=== PATIENT | female | born 1955 | race Caucasian/White ===

== ENCOUNTER → 2016-10-24 | Outpatient (CLI) | payer OTHER ==
[~2016-10-24] MED LIST: ALPR.25 PO; AMLO5 PO; APREPITANT 40 MG CAP ONE; EFFE150C PO; ESTR1TAB PO; LORA-373 PO; LORA1TAB12 PO; MEDR2.5T2 PO; MELA5TAB15 PO; METO25TA3 PO; NORV2.5T PO
[2016-10-24 12:20] LABS: AUTOMATED NEUTROPHIL # 4.4 TH/MM3 (1.8-7.7); BASOPHIL # 0.1 TH/MM3 (0-0.2); BASOPHIL % 0.9 % (0.0-2.0); EOSINOPHIL # 0.1 TH/MM3 (0-0.4); EOSINOPHIL % 0.8 % (0.0-4.0); HEMATOCRIT 36.8 % (35.0-46.0); HEMO FLAGS DIFF FINAL; LYMPH % 19.8 % (9.0-44.0); LYMPHOCYTE # 1.2 TH/MM3 (1.0-4.8); MEAN CELL VOLUME 91.3 FL (80.0-100.0); MEAN CORPUSCULAR HEMOGLOBIN 32.1 PG (27.0-34.0); MEAN CORPUSCULAR HGB CONC 35.2 % (32.0-36.0); MONO % 8.1 % (0.0-8.0); NEUT % 70.4 % (16.0-70.0); PLATELET COUNT 282 TH/MM3 (150-450); RED BLOOD COUNT 4.04 MIL/MM3 (4.00-5.30); RED CELL DISTRIBUTION WIDTH 13.2 % (11.6-17.2); WHITE BLOOD COUNT 6.3 TH/MM3 (4.0-11.0)
[2016-10-24 12:24] LABS: BLOOD, URINE MOD (NEG); GLUCOSE,URINE NEG (NEG); KETONE, URINE NEG (NEG); MUCUS URINE FEW /lpf (OCC); NITRITE,URINE NEG (NEG); SQUAMOUS EPITHELIAL CELL URINE 1 /hpf (0-5); URINE COLOR YELLOW (YELLW/STRAW)
[2016-10-24 12:45] LABS: BICARBONATE 28.4 MEQ/L (21.0-32.0); POTASSIUM 3.8 MEQ/L (3.5-5.1)
--- NOTE | 2016-10-24 18:23 | EKG ---
Date Performed: 10/24/2016 Time Performed: 10:57:32 PTAGE: 60 years EKG: NORMAL Sinus rhythm POSSIBLE LEFT ATRIAL ABNORMALITY Compared to prior tracing no significant change PREVIOUS TRACING 05/11/1995 02.58.42 DOCTOR: Car Cristina Interpretating Date/Time 10/24/2016 18:21:56
== END ==
LOC: CPRE 10:36
PROVIDERS: ATTEND Obstetrics & Gynecology
DX: Z01.810 Encounter for preprocedural cardiovascular examination (principal); Z01.812 Encounter for preprocedural laboratory examination; N95.0 Postmenopausal bleeding
CPT/HCPCS: 80048; 81001; 85025; 86850; 86900; 86901; 93005

== ENCOUNTER 2016-10-26 05:23 | Inpatient (IN) | payer OTHER ==
--- NOTE | 2016-10-25 13:40 | MH ---
cc: MANUEL CHRISTIANSEN DATE OF ADMISSION: 10/26/2016 DATE OF : 1955 SCHEDULED PROCEDURE LAVH, BSO. ADMITTING DIAGNOSIS Postmenopausal bleeding. HISTORY OF PRESENT CONDITION The patient is a 60-year-old white female, para 2, with intact pelvis who has had intermittent bouts of heavy bleeding up to 11 days with cramps while on hormone therapy. She has not missed any of her pills. She had an episode of bleeding four months ago and had a negative endometrial biopsy. She has no hypertension or diabetes. She has been on combined hormone replacement therapy for about eight years. She has occasional heart palpitations and uses metoprolol but no other medications. She has been under very great stress test with the recent loss of her father. Pap smears have all been normal. Ultrasound has shown an absence of an enlarged uterus but the lining is 9 mm. It also has an inhomogeneity suggesting possible polyps. She preferred to avoid a hysteroscopy and go straight to laparoscopic-assisted vaginal hysterectomy. PAST MEDICAL HISTORY She is otherwise in quite good health. She takes Effexor for mild depression and metoprolol for occasional palpitations. SOCIAL HISTORY She does not smoke, drink or use illicit drugs. She exercises regularly. FAMILY HISTORY Noncontributory. REVIEW OF SYSTEMS Otherwise negative. She has no problem with her bowels or bladder or intercourse. PHYSICAL EXAMINATION VITAL SIGNS: Weight 145. Height 5 feet 9 inches. Blood pressure 140/78. NECK: She has no thyroid enlargement. LUNGS: Clear to auscultation. HEART: Rate and rhythm are regular without murmur, heave or thrills. BREASTS: Without dominant mass, nipple discharge or skin retraction. ABDOMEN: Benign. She has no hepatosplenomegaly. BACK: No CVA tenderness. PELVIC: Perineum is well-estrogenized. Vault is elevated. Cervix is multiparous. Uterus is anteverted, mobile, nontender. There is minimal descent. Ovaries are not palpable. Rectovaginal exam shows a negative guaiac, no polyps, no hemorrhoids and no significant rectocele. EXTREMITIES: Unremarkable. IMPRESSION Postmenopausal bleeding with a negative endometrial biopsy, but there is knowledge that this could be a 5% false negative. Thickened endometrium on ultrasound otherwise benign. She is on hormone replacement therapy. PLAN The plan is to proceed with LAVH and BSO. The risks, benefits, expectations and alternatives have been discussed in detail with her and her . She is scheduled for morning and has signed consents. MD AUREA Leblanc/BT /1:22 PM /1:30 PM
[~2016-10-26] VITALS: Ht 172.1 cm; Wt 70.2 kg
[2016-10-26] VITALS (8 sets, daily range): BP systolic 126–166; BP diastolic 78–100; PULSE 71–93; RESP 12–22; TEMP 97–98.3; O2SAT 94–100
[~2016-10-26 05:23] MED LIST changes: -AMLO5 PO; -APREPITANT 40 MG CAP ONE; -LORA-373 PO; -LORA1TAB12 PO; -MELA5TAB15 PO; -NORV2.5T PO
[2016-10-26] MEDS ORDERED: INSULIN HUMAN REGULAR 1,000 UNITS/10 ML VIAL SQ PRN (06:00)
[2016-10-26] MEDS: SODIUM CHLORID 0.9% 500 ML IV SCH ×2 (06:00→20:29)
[2016-10-26] MEDS: LACTATED RINGER'S 1000 ML IV SCH (06:00)
[2016-10-26] MEDS ORDERED: METOPROLOL TARTRATE 25 MG TAB PO PRN (06:00)
[2016-10-26] MEDS ORDERED: ceFAZolin 2 GM PREMIX 50 ML ONE (06:03)
[2016-10-26] MEDS ORDERED: MIDAZOLAM HCL 2 MG/2 ML VIAL ONE (07:21)
[2016-10-26] MEDS ORDERED: ACETAMINOPHEN 1000 MG/100 ML VIAL IV ONE (07:22)
[2016-10-26] MEDS ORDERED: fentaNYL CITRATE 250 MCG/5 ML AMP ONE ×2 (07:22→13:05)
[2016-10-26] MEDS ORDERED: APREPITANT 40 MG CAP ONE (07:22)
[2016-10-26] MEDS ORDERED: DEXAMETHASONE SOD PHOS 4 MG/ML VIAL ONE (07:22)
[2016-10-26] MEDS ORDERED: FAMOTIDINE 20 MG/2 ML VIAL ONE (07:23)
[2016-10-26] MEDS ORDERED: ONDANSETRON HCL 4 MG/2 ML VIAL ONE (07:41)
[2016-10-26] MEDS ORDERED: PHENYLEPH/NS 1000 MCG/10 ML SYR IV ONE (08:07)
[2016-10-26] MEDS ORDERED: NEOSTIGMINE 3 MG/3 ML SYR IV ONE (08:07)
[2016-10-26] MEDS ORDERED: ePHEDrine/NS 25 MG/5 ML SYR IV ONE (08:07)
[2016-10-26] MEDS ORDERED: PROPOFOL 200 MG/20 ML AMP IV ONE (08:07)
[2016-10-26] MEDS ORDERED: BUPIVACAINE/EPINEPHRINE 0.25% PF 30 ML VIAL INFIL ONE (08:22)
[2016-10-26] MEDS ORDERED: SODIUM CHLORIDE 0.9% FLUSH 5 ML FLUSH FLUSH PRN (10:15)
[2016-10-26] MEDS ORDERED: LORazepam 0.5 MG TAB PO PRN (10:15)
[2016-10-26] MEDS ORDERED: IBUPROFEN 600 MG TAB PO PRN (10:15)
[2016-10-26] MEDS ORDERED: HYDROmorphone HCL PF 1 MG/ML VIAL IVP PRN (10:15)
[2016-10-26] MEDS ORDERED: ONDANSETRON HCL 4 MG/2 ML VIAL IVP PRN (10:15)
[2016-10-26] MEDS ORDERED: ESTRADIOL 0.1 MG/24 HR PATCH TD ONE (10:15)
[2016-10-26] MEDS ORDERED: ZOLPIDEM TARTRATE 5 MG TAB PO PRN (10:15)
[2016-10-26] MEDS ORDERED: KETOROLAC TROMETHAMINE 30 MG/ML (IVP) VIAL IVP PRN (10:15)
[2016-10-26] MEDS ORDERED: PROMETHAZINE INJ 25 MG/ML VIAL IM PRN (10:15)
[2016-10-26] MEDS: LACTATED RINGER'S 1000 ML INJ 1,000 ML IV SCH ×2 (10:45→18:14)
[2016-10-26] MEDS ORDERED: PILL SPLITTER OTHER PRN (10:45)
[2016-10-26] MEDS ORDERED: *morphine SULFATE 8 MG/ML PERIprocedure ONLY ONE (11:03)
[2016-10-26] MEDS ORDERED: *PROMETHAZINE 25 MG/ML VIAL PERIprocedural use ONLY ONE (11:30)
[2016-10-26] MEDS ORDERED: SODIUM CHLORIDE 0.9% FLUSH 5 ML FLUSH IV FLUSH PRN (14:30)
[2016-10-26] MEDS ORDERED: CHLORHEXIDINE GLUCONATE 2 % 1 PACK (2 CLOTHS) TOP PRN (14:30)
[2016-10-26] MEDS ORDERED: MISCELLANEOUS NURSING INFORMATION XX SCH (14:30)
[2016-10-26] MEDS ORDERED: ONDANSETRON HCL 4 MG/2 ML VIAL IV PRN (14:30)
--- NOTE | 2016-10-26 14:36 | HHI.CCPN ---
Subjective Remarks/Hospital Course Patient episodically hypertensive and labile earlier. Normotensive now. Warm, well perfused. Breathing comfortably. Neurologically grossly intact, O X 3 , conversant. Only complaint is nausea. I won't complete formal consult but we will watch her closely for any hemodynamic problems. Objective Vital Signs Date Time Temp Pulse Resp B/P Pulse Ox O2 Delivery O2 Flow Rate FiO2 10/26/16 11:30 97.4 87 14 153/94 98 Nasal Cannula 3 Roger Parisi MD Oct 26, 2016 14:36
[2016-10-26] MEDS ORDERED: ALPRAZolam 0.25 MG TAB PO PRN (15:00)
[2016-10-26] MEDS: ACETAMINOPHEN 325 MG TAB PO PRN (16:26)
[2016-10-26] MEDS ORDERED: LORazepam 2 MG/ML VIAL IV PRN (19:30)
[2016-10-26] MEDS: SODIUM CHLORIDE 0.9% FLUSH 5 ML FLUSH IV FLUSH SCH (20:27)
[2016-10-26] MEDS: VENLAFAXINE HCL XR 75 MG CAP PO SCH (20:27)
[2016-10-26] MEDS: METOPROLOL TARTRATE 25 MG TAB PO SCH (20:27)
[2016-10-26] MEDS: FAMOTIDINE 20 MG TAB PO SCH (20:28)
[2016-10-26] MEDS ORDERED: LABETALOL HCL 100 MG/20 ML VIAL IV ONE (20:45)
[2016-10-26] MEDS ORDERED: SODIUM CHLORIDE 0.9% FLUSH 5 ML FLUSH FLUSH SCH (21:00)
[2016-10-27] VITALS (11 sets, daily range): BP systolic 138–164; BP diastolic 68–93; PULSE 71–93; RESP 12–20; TEMP 97.2–98.7; O2SAT 93–100
[2016-10-27] MEDS: LACTATED RINGER'S 1000 ML INJ 1,000 ML IV SCH (02:14)
[2016-10-27] MEDS ORDERED: CHLORHEXIDINE GLUCONATE 2 % 1 PACK (2 CLOTHS) TOP SCH (04:00)
[2016-10-27 04:53] LABS: AUTOMATED NEUTROPHIL # 12.5 TH/MM3 (1.8-7.7); BASOPHIL % 0.1 % (0.0-2.0); HEMO FLAGS DIFF FINAL; LYMPH % 6.9 % (9.0-44.0); MEAN CELL VOLUME 91.8 FL (80.0-100.0); MEAN CORPUSCULAR HEMOGLOBIN 31.6 PG (27.0-34.0); MEAN CORPUSCULAR HGB CONC 34.4 % (32.0-36.0); MONO % 6.6 % (0.0-8.0); NEUT % 86.4 % (16.0-70.0); PLATELET COUNT 262 TH/MM3 (150-450); RED CELL DISTRIBUTION WIDTH 12.9 % (11.6-17.2); WHITE BLOOD COUNT 14.4 TH/MM3 (4.0-11.0)
[2016-10-27 05:02] LABS: BICARBONATE 27.7 MEQ/L (21.0-32.0); POTASSIUM 3.7 MEQ/L (3.5-5.1)
[2016-10-27] MEDS: LACTATED RINGER'S 1000 ML IV SCH (05:30)
[2016-10-27] MEDS: METOPROLOL TARTRATE 25 MG TAB PO SCH ×2 (07:27→21:02)
[2016-10-27] MEDS: ACETAMINOPHEN 325 MG TAB PO PRN (07:27)
[2016-10-27] MEDS: FAMOTIDINE 20 MG TAB PO SCH ×2 (07:27→21:01)
--- NOTE | 2016-10-27 07:27 | HHI.CCPN ---
Subjective Remarks/Hospital Course Patient episodically hypertensive and labile earlier. BP 230/120s in OR. Normotensive now. Warm, well perfused. Breathing comfortably. Neurologically grossly intact, O X 3, conversant. Only complaint is nausea. I won't complete formal consult but we will watch her closely for any hemodynamic problems. 10/27: Patient with hypertensive crisis prior to surgery yesterday, associated with flushed skin. 230s/120s range. Recurred during surgery as well. Patient has not had problems with high blood pressure before. Will ask renal service to evaluate. Objective Vital Signs Date Time Temp Pulse Resp B/P Pulse Ox O2 Delivery O2 Flow Rate FiO2 10/27/16 06:00 78 10/27/16 04:00 97.7 12 164/93 97 10/26/16 19:00 Room Air 96 10/26/16 11:30 3 Intake and Output 10/26/16 10/26/16 10/27/16 08:00 16:00 00:00 Intake Total 1250 ml 1047 ml Output Total 750 ml 550 ml Balance 500 ml 497 ml Result Diagram: 10/27/16 0414 10/27/16 0414 Roger Parisi MD Oct 27, 2016 07:27
--- NOTE | 2016-10-27 08:35 | PD.OP ---
Operative Report Date of Surgery: Oct 26, 2016 Preoperative Diagnosis: PMB, cramping Postoperative Diagnosis: same, carmen operative malignant hypertension Procedure: LAVHBSO, enterocele repair cystoscopy Anesthesia: general Surgeon: Parisa Travis Scrap Iron Cutter(s): Adeline Gonzales MS3 Operation and Findings: Had episode of Nausea, vomiting, and diaphoresis then BP 240/120 anesthesia addressed intra operatively consult to SICU and maintenance assistant to help with the BP issues. These have never occurred before. Dictated note Parisa Travis MD Oct 27, 2016 08:35
--- NOTE | 2016-10-27 08:37 | HHI.PR ---
Subjective Remarks Doing well, pain is well controlled, eating well. Severe nausea yesterday and last night has resolved. anxious to understand what her BP is doing. Objective Vital Signs Vital Signs Date Time Temp Pulse Resp B/P Pulse Ox O2 Delivery O2 Flow Rate FiO2 10/27/16 06:00 78 10/27/16 04:00 79 10/27/16 04:00 97.7 77 12 164/93 97 10/27/16 02:00 79 10/27/16 00:00 71 10/27/16 00:00 97.2 71 19 141/85 98 10/26/16 22:00 73 10/26/16 21:59 15 10/26/16 20:30 94 10/26/16 20:00 97.6 85 13 166/100 94 10/26/16 20:00 71 10/26/16 19:00 Room Air 96 10/26/16 18:00 86 10/26/16 16:00 97.7 76 22 136/78 99 10/26/16 16:00 76 10/26/16 14:00 93 10/26/16 12:00 97.0 76 12 126/80 96 10/26/16 12:00 76 10/26/16 11:30 97.4 87 14 153/94 98 Nasal Cannula 3 10/26/16 11:15 81 12 129/80 98 Nasal Cannula 3 10/26/16 11:00 83 12 164/96 98 Nasal Cannula 3 10/26/16 10:45 83 12 157/86 99 Simple Mask 8 10/26/16 10:30 83 12 150/85 97 Simple Mask 8 10/26/16 10:29 96.8 71 11 154/90 97 Simple Mask 8 I/O 10/26/16 10/26/16 10/26/16 10/27/16 10/27/16 10/27/16 07:00 15:00 23:00 07:00 15:00 23:00 Intake Total 1250 ml 1047 ml 1128 ml Output Total 750 ml 550 ml 450 ml Balance 500 ml 497 ml 678 ml Intake Oral 240 ml 100 ml IV Total 807 ml 1028 ml TPN/PPN 50 ml Other 1200 ml Output Urine Total 700 ml 550 ml 450 ml Estimated Blood Loss 50 ml # Bowel Movements 0 0 Result Diagram: 10/27/16 0414 10/27/16 0414 Objective Remarks Chest is clear, regular rate and rhythm. Abdomen is soft and non-distended. Incisions are clean and dry. RLQ incision bruised no bleeding from perineum Ext no CCE. A/P Assessment and Plan Post Op Day 1 Dr. Edge to assist us in evaluating her labile hypertension and addressing before discharge will consult nephrology will transfer to med/surg as per Dr. Edge. Parisa Travis MD Oct 27, 2016 08:37
[2016-10-27] MEDS ORDERED: LISINOPRIL 5 MG TAB PO SCH (09:00)
[2016-10-27] MEDS: SODIUM CHLORIDE 0.9% FLUSH 5 ML FLUSH IV FLUSH SCH ×2 (09:00→21:04)
--- NOTE | 2016-10-27 09:49 | MP ---
cc: HOLA ALEX PAMELA HARMAN, P.KENT MD DATE OF SURGERY: 10/26/2016 PREOPERATIVE DIAGNOSIS 1. Persistent postmenopausal bleeding. 2. Anxiety disorder. 3. Occasional tachycardia controlled with metoprolol. POSTOPERATIVE DIAGNOSIS 1. Persistent postmenopausal bleeding. 2. Anxiety disorder. 3. Occasional tachycardia controlled with metoprolol. 4. Labile hypertension throughout the case to be monitored in SICU for 24 hours. PROCEDURE 1. Laparoscopically assisted vaginal hysterectomy. 2. Bilateral salpingo-oophorectomy. 3. Enterocele obliteration. 4. Lysis of adhesions. 5. Cystoscopy. ANESTHESIA General. SURGEON Angy MAIL LIST LIBRARIAN Adeline Gonzales FINDINGS The patient was counseled in holding and between holding and the OR developed significant diaphoresis, nausea, vomiting and hypertension. The procedure was postponed until she was stabilized and then she was taken to the OR to be placed under general anesthesia. During induction her blood pressures reached 240s/110s and required Anesthesia intervention. Please see their records. She was eventually normotensive and it was decided to proceed with the case. She tolerated both laparoscopic and vaginal procedures, however, with the laparoscopic portion it was hard to maintain her blood pressure. Examination under anesthesia revealed an anteverted mobile small uterus, ovaries were not palpable. She had no real cystocele or rectocele. She did have a moderate enterocele. Upon entering the peritoneal cavity the liver edge and gallbladder were normal. There were adhesions in the right lower quadrant consistent with her history of appendectomy. The uterus, tubes and ovaries were mobile and small. There was no evidence of any endometriosis, any carcinoma or other pathology. The laparoscopic portion of the case went uneventfully with no bleeding. The vaginal portion of the case was somewhat difficult due to the depth of the vagina. There was some oozing throughout the vaginal portion when the cuff was closed reevaluation laparoscopically revealed two areas of small bleeders in the cuff. These were rendered hemostatic with the Kleppinger and Valerie. They were and they will watched carefully when the pneumoperitoneum was released to make sure that they did not bleed under the release of pressure. Valerie was placed and stayed dry. A cystoscopy was performed with good flow from both ureteral orifices. No iatrogenic or intrinsic pathology noted. She tolerated the procedure well. ESTIMATED BLOOD LOSS 200 cc. COUNTS Sponge, instrument and needle counts correct. DETAILS OF PROCEDURE The patient was identified as Korina Brown. Her permit was reviewed in Holding. She had the episode of nausea, vomiting and diaphoresis that was evaluated and addressed, and then taken to the operating room, placed under general endotracheal anesthesia in the dorsal lithotomy position. Again the labile hypertension was apparent and addressed. She was prepped and draped in usual sterile fashion. A Painting catheter was placed by the thermograph operator. A timeout was performed with all in attendance. She had received Ancef one gram IV prior to the procedure. After placing the Painting catheter and a single-tooth tenaculum with acorn tenaculum in the vaginal vault, attention was directed to the abdomen. The umbilicus was infiltrated with lidocaine with epinephrine and a 5 mm trocar and sleeve placed into the peritoneal cavity. She was instilled with two liters of carbon dioxide and then checked for iatrogenic injury. Additional incisions were made in the right and left lower quadrant, both 5 mm, both instilled with lidocaine with epinephrine, and then trocars and sleeves placed. Once the trocars were placed, systematic evaluation of the abdominal and pelvic contents was performed with the findings as noted above. The Harmonic scalpel was used to transect the right round ligament the anterior leaf of the broad ligament was dissected off the lower uterine segment. The right tube and ovary were gently placed on a medial traction and the infundibulopelvic ligament was transected and successive pedicles were taken down to the level of the uterosacral. This was repeated on the left side without difficulty. Filmy adhesions in the right lower quadrant were lysed and then once we got down to the uterosacrals attention was directed toward the peritoneum. There was no bleeding from any pedicles at that time. The patient was placed in extended dorsal lithotomy position. The cervix was grasped. It was infiltrated with lidocaine with epinephrine and circumcised with the Bovie on cutting. The anterior and posterior cul-de-sacs were entered sharply and then the uterosacrals were clamped, cut and suture ligated. Successive pedicles were taken until the uterus was removed with the adnexa intact. The peritoneum was grasped and an enterocele repair was performed in the classic Moschcowitz fashion. Then the vagina was closed in a running interlocking vertical stitch. Attention was redirected to the abdomen and her pneumoperitoneum was re-instilled and the cuff was evaluated. There was a brisk bleeder on the left angle which was rendered hemostatic with a Kleppinger. There was some oozing on the right side which also was rendered hemostatic with the Kleppinger. Valerie was placed and she was carefully evaluated for any oozing. There was no bleeding, no oozing. The Valerie stayed dry. The pneumoperitoneum was released under direct visualization and there was no bleeding in the surgical site. Attention was redirected then toward the perineum where the Painting was filled with 500 cc. The catheter was removed and a laparoscope placed in the bladder to show a normal bladder with good ureteral flow from both orifices and no iatrogenic or intrinsic pathology. The instrument was removed. The Painting was replaced. The incisions were then closed with a single interrupted. She was placed in dorsal supine position. She was taken to the recovery room stable, but the decision has been made for her to have 24 hours of monitoring in the SICU to make sure that she does not have the episodes of blood pressure and increased risk for postoperative bleeding. MD AUREA Leblanc/STACY /10:26 AM /9:25 AM
--- NOTE | 2016-10-27 17:13 | PD.CONS ---
[facility] Service Nephrology Consult Requested By Dr. Travis Reason for Consult Hypertension Primary Care Physician Kaleb Lucero MD History of Present Illness The patient is a 60 yo [place] female who presented to this facility on 10/26 with postmenopausal bleeding with LAVH/BSO yesterday. During her preoperative prep, she had a spike in her BP with systolic >200. She was diaphoretic at the time. The anesthesiologist was able to get her BP down and the surgery proceeded. We have been consulted for evaluation of spike in BP specifically to determine if she may have an underlying secondary hypertension. Her PMHx is overall quite benign with PVCS/palliations managed by Metoprolol and anxiety managed by Effexor (been on same dose of medication for the past 4 years). She does use Voltaren at home, but had not used any for 7 days prior to her surgery. She does not smoke, does not drink alcohol, nor does she partake in illicit drug use. She does admit that she has had a stressful past 8 years of taking care of her ailing parents and she does have an anxious personality, but feels that she was prepared for her surgery and does not think her life stressors and anxiety had contributed to her spike in BP. Her FHx includes HTN and DM with her father who passed just 2 weeks ago at the age of 89. BP post surgery has been overall OK. Mildly elevated, but nothing close to her reported systolic of >200. She was started on Lisinopril 5mg this AM. (Lorraine Yeung) Review of Systems Constitutional: COMPLAINS OF: Diaphoretic episodes Psychiatric: COMPLAINS OF: Anxiety (Lorraine Yeung) Past Family Social History Allergies: Coded Allergies: No Known Allergies (Unverified , 10/24/16) Past Medical History Palpitations Depression/anxiety Recent post-menopausal bleeding Past Surgical History Hysterectomy/BSO 10/26 Reported Medications Reported Meds & Active Scripts Active Reported Xanax (Alprazolam) 0.25 Mg Tab 0.25 Mg PO Q4H PRN Medroxyprogesterone Acetate 2.5 Mg Tab 2.5 Mg PO HS Start day 21 Estradiol 1 Mg Tab 1 Mg PO DAILY Effexor XR 24 HR (Venlafaxine HCl) 150 Mg Cap 175 Mg PO HS Metoprolol Tartrate 25 Mg Tab 25 Mg PO BID Active Ordered Medications Current Medications Medications (Trade) Dose Ordered Sig/Darin Route Start Time Stop Time Status Last Admin Lactated Ringer's 1,000 ml @ 30 mls/hr Q24H IV 10/26/16 06:00 10/26/16 06:00 (Lr 1000 ml Inj) 1,000 ml @ 125 mls/hr Q8H IV 10/26/16 10:14 10/27/16 02:14 (Motrin) 600 mg Q6H PRN PO 10/26/16 10:15 (Toradol Inj) 30 mg Q6H PRN IVP 10/26/16 10:15 10/31/16 10:14 10/26/16 20:56 (Dilaudid Pf Inj) 1 mg Q4H PRN IVP 10/26/16 10:15 (Phenergan Inj) 25 mg Q6H PRN IM 10/26/16 10:15 10/26/16 16:43 (Ambien) 5 mg HS PRN PO 10/26/16 10:15 (Ativan) 0.25 mg Q8H PRN PO 10/26/16 10:15 (Pill Splitter) 1 ea UNSCH PRN OTHER 10/26/16 10:45 (Xanax) 0.25 mg Q4H PRN PO 10/26/16 15:00 (Lopressor) 25 mg BID PO 10/26/16 21:00 10/27/16 07:27 (Effexor Xr) 150 mg HS PO 10/26/16 21:00 (NS Flush) 2 ml UNSCH PRN IV FLUSH 10/26/16 14:30 (NS Flush) 2 ml BID IV FLUSH 10/26/16 21:00 10/27/16 09:00 (Tylenol) 650 mg Q6H PRN PO 10/26/16 15:00 10/27/16 07:27 (Pepcid) 20 mg Q12HR PO 10/26/16 21:00 10/27/16 07:27 (Zofran Inj) 4 mg Q6H PRN IV 10/26/16 14:30 10/26/16 15:00 Miscellaneous Information 1 Q361D XX 10/26/16 14:30 10/26/16 14:30 (Chlorhexidine 2% Cloth) 3 pack Taper DAILY@04 TOP 10/27/16 04:00 10/23/17 03:59 (Chlorhexidine 2% Cloth) 3 pack UNSCH PRN TOP 10/26/16 14:30 (Ativan Inj) 1 mg Q4H PRN IV 10/26/16 19:30 (Prinivil) 5 mg DAILY PO 10/27/16 09:00 10/27/16 09:05 Family History As above Social History Denies smoking, EtOH, illicits Very active with playing tennis a few days per week. Plays piano (Lorraine Yeung) Physical Exam Vital Signs Vital Signs Date Time Temp Pulse Resp B/P Pulse Ox O2 Delivery O2 Flow Rate FiO2 10/27/16 16:00 84 10/27/16 16:00 98.0 84 20 139/75 93 10/27/16 14:00 76 10/27/16 12:00 76 10/27/16 12:00 97.6 78 14 138/68 98 10/27/16 10:00 76 10/27/16 09:09 98 21 10/27/16 08:00 97.9 76 13 159/88 97 10/27/16 08:00 78 10/27/16 07:00 Room Air 97 10/27/16 06:00 78 10/27/16 04:00 79 10/27/16 04:00 97.7 77 12 164/93 97 10/27/16 02:00 79 10/27/16 00:00 71 10/27/16 00:00 97.2 71 19 141/85 98 10/26/16 22:00 73 10/26/16 21:59 15 10/26/16 20:30 94 10/26/16 20:00 97.6 85 13 166/100 94 10/26/16 20:00 71 10/26/16 19:00 Room Air 96 10/26/16 18:00 86 Physical Exam GENERAL: Laying bed watching TV. Is in good spirits and conversive. NAD. SKIN: Warm and dry. HEAD: Atraumatic. Normocephalic. EYES: Pupils equal and round. No scleral icterus. No injection or drainage. ENT: No nasal bleeding or discharge. Mucous membranes pink and moist. NECK: Trachea midline. No JVD. CARDIOVASCULAR: Regular rate and rhythm. RESPIRATORY: No accessory muscle use. Clear to auscultation. Breath sounds equal bilaterally. GASTROINTESTINAL: Abdomen soft, non-tender, nondistended. Hepatic and splenic margins not palpable. MUSCULOSKELETAL: Extremities without clubbing, cyanosis, or edema. No obvious deformities. NEUROLOGICAL: Awake and alert. Normal speech. PSYCHIATRIC: Appropriate mood and affect; insight and judgment normal. Laboratory Laboratory Tests Test 10/27/16 04:14 White Blood Count 14.4 Red Blood Count 3.60 Hemoglobin 11.4 Hematocrit 33.0 Mean Corpuscular Volume 91.8 Mean Corpuscular Hemoglobin 31.6 Mean Corpuscular Hemoglobin 34.4 Concent Red Cell Distribution Width 12.9 Platelet Count 262 Mean Platelet Volume 8.5 Neutrophils (%) (Auto) 86.4 Lymphocytes (%) (Auto) 6.9 Monocytes (%) (Auto) 6.6 Eosinophils (%) (Auto) 0.0 Basophils (%) (Auto) 0.1 Neutrophils # (Auto) 12.5 Lymphocytes # (Auto) 1.0 Monocytes # (Auto) 0.9 Eosinophils # (Auto) 0.0 Basophils # (Auto) 0.0 CBC Comment DIFF FINAL Differential Comment Sodium Level 133 Potassium Level 3.7 Chloride Level 96 Carbon Dioxide Level 27.7 Anion Gap 9 Blood Urea Nitrogen 6 Creatinine 0.55 Estimat Glomerular Filtration 113 Rate Random Glucose 117 Calcium Level 8.1 (Lorraine Yeung) Result Diagram: 10/27/1641310/27/16413 Assessment and Plan Problem List: (1) Labile hypertension Plan: The patient's BP had spiked yesterday just before her procedure. It is not entirely clear why this occurred, but she may have had a reaction to Ancef. Her home medications (Estrace as well as Effexor) can also cause hypertension. Given her anxiety and diaphoresis with her hypertension, we will screen her for secondary cause of hypertension. Her BP today has been OK with the addition of Lisinopril. You will sometimes see a spike in BP with addition of ACEi in setting of TETE. 24h urine for catecholamines and metanephrines have been ordered Check renin/aldosterone levels Check renal US with doppler of renal arteries. Will follow. (2) Depression with anxiety Plan: Mgmt as per primary. Appears to be controlled on Effexor (3) Postmenopausal bleeding Plan: s/p LAVH/BSO on 10/26 (Lorraine Yeung) Assessment and Plan Patient may have mild essential hypertension with exacerbation perioperatively. Suspicion for secondary hypertension presently low however will proceed with evaluation. We'll discontinue the MEME inhibitor for the present as the patient will be receiving an NSAID for analgesia and accommodation a 2 may predispose patient to prerenal azotemia. Will add a calcium channel shahzad if required. The exam, history, and the medical decision-making described in the above note were completed with the assistance of the PAKeya. I reviewed and agree with the findings presented. I attest that I had a [id number] encounter with the patient on the same day, and personally performed and documented my assessment and findings in the medical record. (May Garcia MD) Lorraine Yeung Oct 27, 2016 17:13 May Garcia MD Oct 27, 2016 18:32
[2016-10-27 19:40] LABS: BLOOD, URINE MOD (NEG); COMMENT (UR) CULT NOT INDICATED; CULTURE IF INDICATED CULT NOT INDICATED; GLUCOSE,URINE NEG (NEG); KETONE, URINE NEG (NEG); NITRITE,URINE NEG (NEG); SQUAMOUS EPITHELIAL CELL URINE 1 /hpf (0-5); URINE COLOR LIGHT-YELLOW (YELLW/STRAW)
[2016-10-27] MEDS: VENLAFAXINE HCL XR 75 MG CAP PO SCH (21:03)
[2016-10-28] VITALS: BP 122/77; PULSE 81; RESP 18; TEMP 97.6; O2SAT 99
[2016-10-28] MEDS: ACETAMINOPHEN 325 MG TAB PO PRN (00:52)
[2016-10-28 04:00] VITALS: BP 126/61; PULSE 80; RESP 18; TEMP 96.4; O2SAT 99
[2016-10-28 08:00] VITALS: BP_SYST 147; BP_SYST 163; BP_DIAS 100; BP_DIAS 88; PULSE 93; RESP 16; TEMP 96.4; O2SAT 98
[2016-10-28] MEDS: FAMOTIDINE 20 MG TAB PO SCH (09:13)
[2016-10-28] MEDS: METOPROLOL TARTRATE 25 MG TAB PO SCH (09:13)
[2016-10-28] MEDS: SODIUM CHLORIDE 0.9% FLUSH 5 ML FLUSH IV FLUSH SCH (09:14)
--- NOTE | 2016-10-28 10:04 | HHI.PR ---
Objective Vital Signs Vital Signs Date Time Temp Pulse Resp B/P Pulse Ox O2 Delivery O2 Flow Rate FiO2 10/28/16 08:00 96.4 93 16 147/88 98 163/100 10/28/16 04:00 96.4 80 18 126/61 99 10/28/16 00:00 97.6 81 18 122/77 99 10/27/16 20:00 98.7 93 17 156/89 100 10/27/16 16:00 84 10/27/16 16:00 98.0 84 20 139/75 93 10/27/16 14:00 76 10/27/16 12:00 76 10/27/16 12:00 97.6 78 14 138/68 98 10/27/16 10:00 76 I/O 10/27/16 10/27/16 10/27/16 10/28/16 10/28/16 10/28/16 07:00 15:00 23:00 07:00 15:00 23:00 Intake Total 1128 ml 575 ml 480 ml 480 ml Output Total 450 ml 1350 ml 450 ml 150 ml Balance 678 ml -775 ml 30 ml 330 ml Intake Oral 100 ml 325 ml 480 ml 480 ml IV Total 1028 ml 250 ml Output Urine Total 450 ml 1350 ml 450 ml 150 ml # Bowel Movements 0 0 Result Diagram: 10/27/16 0414 10/27/16 0414 A/P Assessment and Plan Reviewing chart from home: Her blood pressure this am was 160/100. The blood in her urine is due to intraoperative cystoscopy. She has no protein. Labs this am are otherwise pending Estrace vaginal cream does not raise blood pressure (it is not a systemically absorbed medication). Effexor, and oral estradiol, progestins do not raise BP to this extend and she had been on HRT many years. She no longer needs to take progestin as the uterus is removed. I will start a patch of estradiol today which has no first past effect through the liver. A secondary etiology needs to be ruled out before essential hypertension is considered the diagnosis. From the photograph mounter surgical point of view Korina has no post operative issues and only needs to follow post op restrictions of pelvic rest and no heavy lifting for 4 weeks. The input of heel coverer machine operator and nephrology appreciated. Parisa Travis MD Oct 28, 2016 10:04
[2016-10-28 10:06] LABS: BICARBONATE 28.4 MEQ/L (21.0-32.0); POTASSIUM 3.7 MEQ/L (3.5-5.1)
[2016-10-28] MEDS ORDERED: ESTRADIOL 0.075 MG/24 HR PATCH TD ONE (10:15)
[2016-10-28 12:45] VITALS: BP 140/89; PULSE 68; RESP 16; TEMP 96.3; O2SAT 99
[2016-10-28 13:04] LABS: URINE TOTAL PROTEIN TIMED 10.6 MG/DL
--- NOTE | 2016-10-28 13:29 | RADRPT ---
EXAM DATE/TIME: 10/28/2016 11:38 [facility] COMPARISON: No previous studies available for comparison. INDICATIONS : Hypertension. MEDICAL HISTORY : Hypertension. Mild arrhythmia. Back/neck pain. Anxiety. SURGICAL HISTORY : Hysterectomy. ENCOUNTER: Initial ACUITY: 2 days PAIN SCORE: 0/10 LOCATION: Abdomen. PEAK FLOW VELOCITIES (cm/sec): AORTA: 46 PROXIMAL: 46 MID: 45 DISTAL: 38 RIGHT RENAL ARTERY: PROXIMAL: 72 MID: 59 DISTAL: 41 RENAL ARTERY RATIO: 1.6 ARCUATE ARTERY RESISTIVE INDEX: Upper: 0.6 Mid: 0.6 Lower: 0.6 LEFT RENAL ARTERY: PROXIMAL: 59 MID: 37 DISTAL: 61 RENAL ARTERY RATIO: 1.3 ARCUATE ARTERY RESISTIVE INDEX: Upper: 0.6 Mid: 0.6 Lower: 0.6 FINDINGS: Renal artery and vein mapping as listed above, within normal limits. No thrombosis or stenosis demons trated. CONCLUSION: No renal artery stenosis or other acute abnormality. Micah Rodríguez MD on October 28, 2016 at 13:26 Board Certified Radiologist. This report was verified electronically.
[2016-10-28] MEDS ORDERED: AMLO5 PO (13:35)
--- NOTE | 2016-10-28 13:36 | HHI.DCPOC ---
Discharge Care Plan Report Symptoms to Your Doctor -Temperate above 100.5 degrees -Redness, of incision or excessive or foul smelling drainage -Unusual pain or calf pain -Increased vaginal bleeding -Painful or difficulty urinating -Feelings of extreme sadness or anxiety after 2 weeks Goals to Promote Your Health * To prevent worsening of your condition and complications * To maintain your health at the optimal level Directions to Meet Your Goals Take your medications as prescribed Follow your dietary instruction Follow activity as directed Ensure plenty of rest for recovery Drink fluids for hydration Keep your appointments as scheduled Take your immunizations and boosters as scheduled If your symptoms worsen call your PCP, if no PCP go to Urgent Care Center or Emergency Room Smoking is Dangerous to Your Health. Avoid second hand smoke Call the 24-hour crisis hotline for domestic abuse at Parisa Travis MD Oct 28, 2016 13:36
[2016-11-01 17:55] LABS: ALDOSTERONE, SERUM LESS THAN 1.0 ng/dL (())
[2016-11-01 19:49] LABS: METANEPHRINE 24 COLLECTION DUR 24 h (())
--- NOTE | 2016-12-06 10:47 | MP ---
cc: MANUEL CHRISTIANSEN DATE OF SURGERY 10/26/2016 DATE OF 1955 ADDENDUM The patient still has her appendix, although I did not see the appendix because there were some adhesions. I assumed that she had an appendectomy and was in correct and she does have her appendix still and I do not have an etiology for the adhesions that I was not overly concerned about their presence and they were lysed. MD AUREA Leblanc/MARJORIEL /1:15 PM /10:42 AM
[2017-02-20] MEDS ORDERED: NORV2.5T PO (14:44)
[2017-02-20] MEDS ORDERED: LORA-373 PO (14:44)
[2017-02-20] MEDS ORDERED: MELA5TAB15 PO (14:47)
[2017-02-20] MEDS ORDERED: LORA1TAB12 PO (14:47)
== END 2016-10-28 14:04 | disposition home or self-care (01) | DRG 742 ==
LOC: HSDC 05:23 → HSDI 10:22 → N03A 11:41 → HOCB 10-27 18:41
PROVIDERS: ADMIT Obstetrics & Gynecology; ATTEND Obstetrics & Gynecology
PROC: 0UT2FZZ Resection of Bilateral Ovaries, Via Natural or Artificial Opening With Percutaneous Endoscopic Assistance (ICD-10-PCS; 2016-10-26)
PROC: 0UT7FZZ Resection of Bilateral Fallopian Tubes, Via Natural or Artificial Opening With Percutaneous Endoscopic Assistance (ICD-10-PCS; 2016-10-26)
PROC: 0UQF7ZZ Repair Cul-de-sac, Via Natural or Artificial Opening (ICD-10-PCS; 2016-10-26)
PROC: 0TJB8ZZ Inspection of Bladder, Via Natural or Artificial Opening Endoscopic (ICD-10-PCS; 2016-10-26)
PROC: 0UT9FZZ Resection of Uterus, Via Natural or Artificial Opening With Percutaneous Endoscopic Assistance (ICD-10-PCS; principal; 2016-10-26 07:47)
DX: N95.0 Postmenopausal bleeding (principal); I16.9 Hypertensive crisis, unspecified; N81.5 Vaginal enterocele; F32.9 Major depressive disorder, single episode, unspecified; R00.2 Palpitations; Z79.890 Hormone replacement therapy; F41.9 Anxiety disorder, unspecified
CPT/HCPCS: 80048; 80069; 81001; 82088; 82306; 82384; 83835; 84157; 84244; 85025; 87205; 87641; 88307; 93975; J0131; J0690; J1100; J1885; J2250; J2270; J2370; J2405; J2550; J2710; J3010; J7120; J8501